=== PATIENT | male | born 1955 | race Two or more races ===

== ENCOUNTER 2025-08-11 10:59 | Day surgery (SDC) | payer MEDICARE, BC, SELFPAY ==
--- NOTE | 2025-08-08 16:10 | EXP.HP ---
History of Present Illness *Admission Date: 08/11/25 *History of present illness: Mr. Carson is a 70-year-old gentleman who is here for screening/surveillance colonoscopy secondary to a personal history of adenomatous colon polyps. The patient did have a colonoscopy with me in August 2018 and had a single polyp (tubular adenoma) removed. He also had extensive left-sided diverticulosis. The patient at that time also had chronic atrophic gastritis and was positive for H. pylori. At that time he received antibiotic treatment. The examination is deemed medically necessary for screening/surveillance colonoscopy. The patient has been seen, interviewed and examined prior to the procedure by both myself and the anesthesia provider. [facility] Disclaimer: The information contained in this section may have been updated after the patient was seen, as this information can be updated by other users. Medical History (Updated 08/11/25 @ 12:05 by Starr Calles RN) Kidney stone Asthma Cellulitis History of diverticulitis History of anemia Hyperlipidemia Hypertension Diabetes mellitus, type 2 Surgical History (Updated 08/10/25 @ 15:34 by Mar Orellana RN) History of bladder surgery Colonoscopy planned History of hernia surgery History of dental surgery Family History (Updated 08/10/25 @ 15:30 by Mar Orellana RN) Other No significant family history Social History (Updated 08/11/25 @ 12:21 by Rajiv Sanchez CRNA) Smoking Status: Never smoker alcohol intake: never substance use type: denies use current occupational status: employed Travel in the last 8 weeks?: None Have you lived/traveled outside [place] in past 30 days?: No Contact w/someone who lives/traveled outside US past 30 days?: No Exposure to someone with infectious disease in past 14 days?: No Do you have a fever (greater than 100.4 F or 38 C)?: No Have you tested positive for COVID-19?: No Exposed to someone with COVID-19 in past 14 days?: No Do you have a sore throat?: No Do you have a cough?: No Do you have any weakness?: No Are you experiencing any nausea/vomitting?: No Do you have any diarrhea?: No Are you experiencing any unusual bleeding?: No Do you have any muscle aches/pain?: No Do you have any abdominal pain?: No Are you experiencing loss of taste or smell?: No Review of Systems Review of Systems Review of systems (narrative): Negative *Cardiovascular Comments: Negative *Gastrointestinal Comments: Negative *Genitourinary Comments: Negative *Musculoskeletal Comments: Negative *Neurologic Comments: Negative Meds Home Medications and Allergies Home Medications ?Medication ?Instructions ?Recorded ?Confirmed ?Type sodium,potassium,mag sulfates 17.5 See Rx Instructions PO .COMPLEX 07/22/25 Rx gram-3.13 gram-1.6 gram oral soln #354 mL (Suprep Bowel Prep Kit) apixaban 5 mg tablet (Eliquis) 5 mg PO BID 08/11/25 08/11/25 History ascorbic acid (vitamin C) 500 mg 500 mg PO DAILY 08/11/25 08/11/25 History tablet (Vitamin C) capsicum (cayenne) 447 mg capsule 447 mg PO DAILY 08/11/25 08/11/25 History carvedilol 12.5 mg tablet 12.5 mg PO BID 08/11/25 08/11/25 History furosemide 20 mg tablet 20 mg PO DAILY 08/11/25 08/11/25 History insulin degludec 100 unit/mL (3 20 unit SQ HS 08/11/25 08/11/25 History mL) subcutaneous pen (Tresiba FlexTouch U-100 insulin) levothyroxine 125 mcg tablet 125 mcg PO DAILY 08/11/25 08/11/25 History metformin 500 mg tablet 500 mg PO BID 08/11/25 08/11/25 History multivitamin 1 tab PO DAILY 08/11/25 08/11/25 History omeprazole 20 mg capsule,delayed 20 mg PO DAILY 08/11/25 08/11/25 History release potassium citrate 15 mEq (1,620 15 meq PO BID 08/11/25 08/11/25 History mg) tablet,extended release semaglutide 2 mg/dose (8 mg/3 mL) 2 mg SQ WEEKLY 08/11/25 08/11/25 History subcutaneous pen injector (Ozempic) simvastatin 40 mg tablet 40 mg PO DAILY 08/11/25 08/11/25 History tamsulosin 0.4 mg capsule 0.4 mg PO DAILY 08/11/25 08/11/25 History New Prescriptions to Start Prescriptions: Allergies Allergy/AdvReac Type Severity Reaction Status Date / Time flecainide Allergy Flushing Verified 08/10/25 15:29 Exam *Routine HEENT Exam Head: Present normocephalic Eye: Present EOMI and PERRL ENT: Present mucous membranes moist *Routine Neck Exam Neck: Present supple *Routine Respiratory Exam Respiratory: Present CTA bilaterally *Routine Cardiovascular Exam Cardiovascular: Present RRR *Routine Abdominal Exam Abdominal: Present soft and normoactive bowel sounds; Absent tenderness *Routine Rectal Exam Rectal:: deferred *Routine Genitalia Exam Genitalia:: deferred *Routine Extremities Exam Extremities: Absent cyanosis, clubbing or edema *Routine Skin Exam Skin: Present warm; Absent rash *Routine Neurological Exam Neurological: Present alert and oriented X3 Assessment and Plan *Assessment and plan (1) Personal history of adenomatous and serrated colon polyps: Status: Acute Category: Medical Code(s): Z86.0101 - Personal history of adenomatous and serrated colon polyps (2) Screening for colon cancer: Status: Acute Category: Medical Code(s): Z12.11 - Encounter for screening for malignant neoplasm of colon Plan A/P: 1. Personal history of adenomatous colon polyps is the preprocedural diagnosis. The patient will be anesthetized/sedated using MAC sedation. The patient has been seen and examined. Cardiac and lung assessment prior to the examination is stable. Proceed with planned screening colonoscopy.
[2025-08-10 15:37] VITALS: BMI 38.4
--- NOTE | 2025-08-11 06:58 | P.PCN_ITS ---
[facility] Procedure Note Date: 08/11/25 Time: 13:00 Procedure Note:: Colonoscopy Procedure Report: Colonoscopy with cold snare polypectomy Endoscopist: Hernando Brar II, MD Referring physician: DONA Hua, [facility], [address] [place] [id number] Date of Procedure: August 11, 2025 Equipment: Olympus [id number] adult colonoscope Sedation: MAC sedation Indication: Mr. Carson is a 70-year-old gentleman who is here for screening/surveillance colonoscopy secondary to a personal history of adenomatous colon polyps. The patient did have a colonoscopy with nv in August 2018 and had a single polyp (tubular adenoma) removed. He also had extensive left-sided diverticulosis. The patient reports no abdominal pain, weight loss, change in his bowel habits or rectal bleeding. He does state that his maternal grandfather had colon cancer. The patient at that time also had chronic atrophic gastritis and was positive for H. pylori. At that time he received antibiotic treatment. The examination is deemed medically necessary for screening/surveillance colonoscopy. Procedure: Prior to the procedure, a history and physical exam was performed, and patient's medications and allergies were reviewed. The risks, benefits and alternatives of the sedation and procedure were discussed with the patient. All questions were answered and informed consent was obtained. The patient was brought to the procedure room. Patient identification and proposed procedure were verified by the physician and the nurse. The patient was placed in a left lateral decubitus position and the scope was passed under direct vision. Throughout the procedure, the patient's blood pressure, pulse, and oxygen saturations were monitored continuously. The colonoscopy was accomplished without difficulty. The patient tolerated the procedure well. Findings: On digital rectal examination there was normal rectal tone. There were no external hemorrhoids. The prostate was 2+, smooth, soft, symmetric without nodules. The colonoscope was introduced through the anal canal to the rectum and advanced to the cecum. The ileocecal valve and appendiceal orifice were identified. The scope was advanced a short distance into the ileum which appeared grossly normal. The scope was then withdrawn into the colon. There was a single 5 mm polyp in the ascending colon removed via cold snare polypectomy. The remaining cecum, ascending and transverse colon and mucosa were grossly normal. There were scattered diverticuli throughout the colon but more predominantly in the descending and sigmoid colon (LEFT colon). The rectum itse lf was normal. Upon retroflexion within the rectum there were grade 2 internal hemorrhoids. The preparation was excellent throughout with [place] Preparation Score of 9. The cecal time was 12 minutes. Impression: 1. Ascending colon polyp (5 mm) 2. Pandiverticulosis 3. Grade 2 internal hemorrhoids Plan: I will follow-up the polyp histology and recommend repeat screening/surveillance colonoscopy again in 7 years. This will certainly be based upon the patient's good health and desire to continue preventative surveillance. I would encourage psyllium bulking fiber supplementation on a long-term daily maintenance basis.
[2025-08-11 12:09] VITALS: BP 187/99; PULSE 72; RESP 18; TEMP 36.2; O2SAT 95
--- NOTE | 2025-08-11 12:20 | EXP.ANES.CKL ---
[facility] Disclaimer: The information contained in this section may have been updated after the patient was seen, as this information can be updated by other users. Medical History (Updated 08/11/25 @ 12:05 by Starr Calles RN) Kidney stone Asthma Cellulitis History of diverticulitis History of anemia Hyperlipidemia Hypertension Diabetes mellitus, type 2 Surgical History (Updated 08/10/25 @ 15:34 by Mar Orellana RN) History of bladder surgery Colonoscopy planned History of hernia surgery History of dental surgery Family History (Updated 08/10/25 @ 15:30 by Mar Orellana RN) Other No significant family history Social History (Updated 08/10/25 @ 15:36 by Mar Orellana RN) Smoking Status: Never smoker alcohol intake: never substance use type: denies use current occupational status: employed Travel in the last 8 weeks?: None [facility] Anesthesia Checklist Patient Identification Patient Identification: Arm Band and Verbal (Name & ) Structural Data Admitted From: Home Planned Operative Procedure/s: Colonoscopy Consent for Planned Operative Procedure(s) Verified: Yes Verified Documents: Surgical Consent NPO Status Verified Time NPO: 00:00 Additional verifications Anesthesia Reactions: No Airway Assessment Mallampati Score:: Class II C-Spine Mobility Assessed: Yes TMJ Mobility Assessed: Yes Dentition: Good Dentition Neurological Assessment Level of Consciousness: Awake, Alert and Appropriate Hx Seizures: No Numbness or tingling in extremities: No Anesthesia Plan Anesthesia Risk discussed: Yes Anesthesia Plan: Verified ASA Class: III Anesthesia Type: MAC
[2025-08-11] MEDS: LACTATED RINGERS 1000ML 1,000 ML 50 ML IV (12:23)
[2025-08-11 12:38] LABS: POC Glucose,Bedside 139 gm/dL (70-110)
[2025-08-11 13:04] VITALS: BP 111/62; PULSE 77; RESP 16; TEMP 36.3; O2SAT 97
[2025-08-11 13:14] VITALS: BP 125/76; PULSE 79; RESP 16; TEMP 36.3; O2SAT 99
[2025-08-11 13:24] VITALS: BP 142/83; PULSE 67; RESP 16; TEMP 36.2; O2SAT 97
[2025-08-11 13:34] VITALS: BP 142/83; PULSE 67; RESP 18; TEMP 36.2; O2SAT 99
== END 2025-08-11 13:34 | disposition home or self-care (01) ==
PROVIDERS: Visit Provider Internal Medicine Gastroenterology
PROC: 0DJD8ZZ Inspection of Lower Intestinal Tract, Via Natural or Artificial Opening Endoscopic (ICD-10-PCS; CPT 45378; principal; 2025-08-11 13:00)
DX: Z12.11 Encounter for screening for malignant neoplasm of colon (principal); K57.30 Diverticulosis of large intestine without perforation or abscess without bleeding; K64.1 Second degree hemorrhoids; D12.2 Benign neoplasm of ascending colon; K29.50 Unspecified chronic gastritis without bleeding; J45.909 Unspecified asthma, uncomplicated; E78.5 Hyperlipidemia, unspecified; I10 Essential (primary) hypertension; E11.9 Type 2 diabetes mellitus without complications; Z79.899 Other long term (current) drug therapy; Z79.84 Long term (current) use of oral hypoglycemic drugs; Z79.4 Long term (current) use of insulin; Z79.01 Long term (current) use of anticoagulants; Z79.85 Long-term (current) use of injectable non-insulin antidiabetic drugs; Z86.0101 Personal history of adenomatous and serrated colon polyps; Z80.0 Family history of malignant neoplasm of digestive organs; Z88.8 Allergy status to other drugs, medicaments and biological substances
CPT/HCPCS: 45385; 82962; 88305; J2003; J2704; J7120